=== PATIENT | female | born 1985 | race Caucasian/White ===

== ENCOUNTER → 2020-04-12 11:11 | Outpatient (BNVA) | payer OTHER, SELFPAY | PROVIDERS: Family Provider Family Medicine; Visit Provider Nurse Practitioner Family | DX: Z11.59 Encounter for screening for other viral diseases (principal) | CPT/HCPCS: 87426 ==

== ENCOUNTER → 2020-08-26 14:32 | Outpatient (BNVA) | payer OTHER, SELFPAY | PROVIDERS: Family Provider Family Medicine; Visit Provider Nurse Practitioner Family | DX: Z30.9 Encounter for contraceptive management, unspecified (principal); Z30.011 Encounter for initial prescription of contraceptive pills | CPT/HCPCS: 81025 ==